=== PATIENT | female | born 2000 | race Two or more races ===

== ENCOUNTER 2020-04-15 19:27 | Emergency (ER) | payer MEDICAID ==
[~2020-04-15] VITALS: Ht 152.4 cm; Wt 66.0 kg
[2020-04-15 19:30] VITALS: BP 111/68
[2020-04-15] MEDS ORDERED: IBUPROFEN 600MG TABLET PO ONE (20:00)
[2020-04-15] MEDS ORDERED: CEFTRIAXONE SODIUM 250 MG/VIAL IM ONE (20:15)
[2020-04-15] MEDS ORDERED: AZITHROMYCIN 500 MG TABLET PO ONE (20:15)
[2020-04-15 20:20] LABS: CLARITY URINE CLEAR (CLEAR); COLOR URINE YELLOW (YELLOW); KETONES URINE NEGATIVE (NEGATIVE); LEUKOCYTE ESTERASE URINE 1+ (NEGATIVE); NITRITE URINE NEGATIVE (NEGATIVE); OCCULT BLOOD URINE NEGATIVE (NEGATIVE); PROTEIN URINE NEGATIVE (NEGATIVE); SPECIFIC GRAVITY URINE 1.023 (1.005-1.030); UROBILINOGEN URINE 0.2 E.U./dL (0.2-1.0)
[2020-04-18 04:07] LABS: NEISSERIA GONORRHOEAE NAA Negative (Negative)
== END 2020-04-15 20:48 | disposition home or self-care (01) ==
LOC: ER 19:27
DX: A64 Unspecified sexually transmitted disease (principal); Z90.49 Acquired absence of other specified parts of digestive tract; R30.0 Dysuria; N89.8 Other specified noninflammatory disorders of vagina
CPT/HCPCS: 81003; 81025; 87086; 87491; 87591; 96372; 99283; J0696